=== PATIENT | female | born 1990 | race Caucasian/White ===

== ENCOUNTER 2016-12-26 21:24 | Emergency (ER) | payer OTHER ==
[~2016-12-26] VITALS: Ht 162.6 cm; Wt 102.5 kg
[2016-12-26 22:33] VITALS: Ht 162.6 cm; Wt 102.5 kg
[2016-12-27] MEDS ORDERED: BISM262O23 PO (00:22)
--- NOTE | 2016-12-27 00:22 | ERD ---
ER Documentation Chief Complaint Date/Time DATE: 12/27/16 TIME: 00:21 Chief Complaint pt c/o abd pain in mid abd HPI 26-year-old female presents to emergency department for complaints of epigastric abdominal pain started today. Patient describes the pain as sharp pain, 6/10 scale, not better or worse with anything, accompanied with nausea vomiting. Patient took Pepto-Bismol with only mild relief. Patient had history of cholecystitis, had gallbladder taken out. Patient denies any fever or chills. Patient denies any flank pain. Patient denies any diarrhea or constipation. ROS All systems reviewed and are negative except as per history of present illness. Medications Home Meds Reported Medications Bismuth Subsalicylate* (Pepto-Bismol*) Unknown Strength Oral.susp, PO Q3H, ML 12/27/16 Allergies Allergies: Coded Allergies: No Known Allergy (Unverified , 05/03/14) PMhx/Soc Medical and Surgical Hx: pt denies Medical Hx History of Surgery: Yes (cholecystectomy) Anesthesia Reaction: No Hx Neurological Disorder: No Hx Respiratory Disorders: No Hx Cardiac Disorders: No Hx Psychiatric Problems: No Hx Miscellaneous Medical Probl: No Hx Alcohol Use: No Hx Substance Use: No Hx Tobacco Use: No Smoking Status: Never smoker FmHx Family History: No coronary disease, No diabetes, No other Physical Exam Vitals Vital Signs Date Time Temp Pulse Resp B/P Pulse Ox O2 Delivery O2 Flow Rate FiO2 12/26/16 22:33 100.1 99 18 124/66 99 Physical Exam GENERAL: The patient is well developed and appropriate for usual state of health, in no apparent distress. CHEST: Clear to auscultation bilaterally. There are no rales, wheezes or rhonchi. HEART: Regular rate and rhythm. No murmurs, clicks, rubs or gallops. No S3 or S4. ABDOMEN: Soft, nontender and nondistended. Good bowel sounds. No rebound or guarding. No gross peritonitis. No gross organomegaly or masses. No Garcia sign or McBurney point tenderness. BACK: No midline or flank tenderness. EXTREMITIES: Equal pulses bilaterally. There is no peripheral clubbing, cyanosis or edema. No focal swelling or erythema. Full range of motion. Grossly neurovascularly intact. NEURO: Alert and oriented. Cranial nerves 2-12 intact. Motor strength in all 4 extremities with 5/5 strength. Sensation grossly intact. Normal speech and gait. SKIN: There is no apparent rash or petechia. The skin is warm and dry. HEMATOLOGIC AND LYMPHATIC: There is no evidence of excessive bruising or lymphedema. No gross cervical, axillary, or inguinal lymphadenopathy. Result Diagram: 12/27/162912/27/1629 Results 24 hrs Laboratory Tests Test 12/27/16 00:30 Alanine Aminotransferase (ALT/SGPT) 90IU/L Albumin 4.6g/dl Albumin/Globulin Ratio 1.24 Alkaline Phosphatase 148IU/L Anion Gap 20 Aspartate Amino Transf (AST/SGOT) 47IU/L Basophils # 0.110^3/ul Basophils % 0.3% Blood Morphology Comment Blood Urea Nitrogen 12mg/dl Calcium Level 10.0mg/dl Carbon Dioxide Level 26mmol/L Chloride Level 99mmol/L Creatinine 0.73mg/dl Direct Bilirubin 0.00mg/dl Eosinophils # 0.210^3/ul Eosinophils % 1.1% Globulin 3.70g/dl Glucose Level 104mg/dl Hematocrit 45.3% Hemoglobin 15.0g/dl Indirect Bilirubin 0.2mg/dl Lipase 85U/L Lymphocytes # 1.410^3/ul Lymphocytes % 7.8% Mean Corpuscular Hemoglobin 28.1pg Mean Corpuscular Hemoglobin Concent 33.2g/dl Mean Corpuscular Volume 84.7fl Mean Platelet Volume 10.1fl Monocytes # 1.410^3/ul Monocytes % 7.7% Neutrophils # 15.410^3/ul Neutrophils % 83.1% Nucleated Red Blood Cells # 0.010^3/ul Nucleated Red Blood Cells % 0.0/100WBC Platelet Count 34411^3/UL Potassium Level 3.7mmol/L Red Blood Count 5.3410^6/ul Red Cell Distribution Width 13.9% Sodium Level 141mmol/L Total Bilirubin 0.2mg/dl Total Protein 8.3g/dl Urine Bacteria FEW Urine Bilirubin NEGATIVE Urine Clarity CLEAR Urine Color LT. YELLOW Urine Glucose NEGATIVE% Urine Hemoglobin 1+ Urine Ketones NEGATIVE Urine Leukocyte Esterase NEGATIVE Urine Microscopic RBC 0-2/HPF Urine Microscopic WBC 0-2/HPF Urine Nitrite NEGATIVE Urine Specific [place] >=1.030 Urine Squamous Epithelial Cells FEW Urine Total Protein NEGATIVE Urine Urobilinogen 0.2 E.U./dL Urine pH 6.0 White Blood Count 18.510^3/ul Current Medications Medications (Trade) Dose Ordered Sig/Zeferino Route PRN Reason Start Time Stop Time Status Last Admin Dose Admin Acetaminophen/ Hydrocodone Bitart ([place] (10/325)) 1 tab ONCE ONCE PO 12/27/16 00:30 12/27/16 00:31 DC 12/27/16 00:36 Ondansetron HCl (Zofran Odt) 4 mg ONCE STAT ODT 12/27/16 00:29 12/27/16 00:30 DC 12/27/16 00:36 Patient was given medication for pain here in emergency department, after treatment, patient verbalized feeling much better. Patient's pain is improved.Patient was given Zofran here in the emergency department. After treatment, patient was able to tolerate po fluids here in the emergency department without any vomiting. There is no signs and symptoms of dehydration. PROCEDURE: CT Abdomen and pelvis without contrast. CLINICAL INDICATION: Abdominal pain. TECHNIQUE: CT scan of the abdomen and pelvis was performed on a multi- detector high-resolution CT scanner. Contiguous axial images were obtained from the lung bases to the ischial tuberosities without intravenous contrast. Coronal and sagittal reformatted images were also obtained. Images were reviewed on the PACS workstation. One or more of the following dose reduction techniques were used: - Automated exposure control. - Adjustment of the mA and/or kV according to patient size. - Use of iterative reconstruction technique. Exam CTD/vol = 23.21 mGy. Total exam DLP = 1366.57 mGy-cm. COMPARISON: 04/21/2015. FINDINGS: Evaluation of the lung bases demonstrates no pleural or parenchymal disease. Abdomen: The liver is normal in size. There is no focal mass or dilatation of the biliary tree. The patient is status post cholecystectomy. The spleen, pancreas and bilateral adrenal glands are within normal limits. Bilateral kidneys are normal in size with no contour deforming mass identified. There is no radiopaque renal or ureteral calculus identified. There is no hydronephrosis or hydroureter. There is no retroperitoneal adenopathy. The abdominal aorta is of normal caliber. There is no abnormal bowel wall thickening or distension. There is no bowel obstruction or free air. A normal appendix is identified. There is no diverticulosis or diverticulitis. There is no ascites. Pelvis: The bladder is unremarkable. The uterus and adnexa are within normal limits. There is no significant pelvic adenopathy or free fluid. Evaluation of the osseous structures demonstrates no suspicious lytic or blastic lesion. IMPRESSION: No acute abnormality identified within the abdomen and pelvis. Status post cholecystectomy. .Uri Ramirez MD, MD Date Time Electronically viewed and signed by .Uri Ramirez MD, MD on 12/27/2016 03:17 .T/ CC: RASHID DALEY [employer] PROCEDURE: Abdominal ultrasound, limited. CLINICAL INDICATION: Abdominal pain. TECHNIQUE: Multiple real-time images were acquired of the patient's right upper abdomen utilizing a high resolution transducer. COMPARISON: 04/21/2015. FINDINGS: The liver demonstrates normal echogenicity and size measuring 16.0 cm. There is no focal mass or intrahepatic biliary ductal dilatation. The portal vein is patent. The gallbladder is absent. The common bile duct measures 4.5 mm in maximal dimension. The pancreas is obscured by overlying bowel gas. No free fluid is identified. The right kidney is normal size and echogenicity measuring 11.1 cm. There is no focal renal mass or echogenic calculus identified. There is no obstructive uropathy. IMPRESSION: Status post cholecystectomy. Pancreas obscured by overlying bowel gas. Otherwise unremarkable right upper abdominal ultrasound. .Uri Ramirez MD, MD Date Time Electronically viewed and signed by .Uri Ramirez MD, MD on 12/27/2016 02:02 .T/ CC: RASHID DALEY [employer] Procedures/MDM Medical Decision Making: Patient's abdominal pain nonspecific at this time, possible gastritis possible viral. There is low suspicion for abdominal emergencies at this time. Patients abdominal exam is normal at this time. Patients radiology exam does not show any abdominal emergencies at this time. There is low suspicion for appendicitis, cholecystitis, abdominal aortic aneurysms or peritonitis at this time. There is low suspicion for sepsis. Patient appears well and is hemodynamically stable. Disposition: Home. Condition: Stable Prescription Zofran, [place], Mylanta, omeprazole Instructions: Patient is advised to take medications as prescribed. Patient is advised to rest, increase fluid intake and do brat diet for next 1-2 days and progress as tolerated. Patient is advised that if symptoms are worse, severe abdominal pain, uncontrolled vomiting, high fever, severe flank pain, worst signs and symptoms, to return to the emergency department immediately. Otherwise, patient can follow up with primary care doctor in 5-7 days. Departure Diagnosis: Primary Impression: Abdominal pain Abdominal location: epigastric Qualified Code: R10.13 - Epigastric pain Condition: Serious Patient Instructions: Abdominal Pain Additional Instructions: : Patient is advised to take medications as prescribed. Patient is advised to rest, increase fluid intake and do brat diet for next 1-2 days and progress as tolerated. Patient is advised that if symptoms are worse, severe abdominal pain , uncontrolled vomiting, high fever, severe flank pain, worst signs and symptoms , to return to the emergency department immediately. Otherwise, patient can follow up with primary care doctor in 5-7 days. RASHID DALEY NP Dec 27, 2016 00:22
[2016-12-27] MEDS ORDERED: ONDANSETRON (ODT) 4 MG TAB ODT STA (00:29)
[2016-12-27] MEDS ORDERED: HYDROCODONE/APAP (10/325) TAB PO ONE (00:30)
[2016-12-27 01:02] LABS: ALBUMIN 4.6 g/dl (3.3-4.9)
[2016-12-27 01:03] LABS: POTASSIUM 3.7 mmol/L (3.5-5.1)
[2016-12-27 01:05] LABS: ALBUMIN/GLOBULIN RATIO 1.24; BILIRUBIN,INDIRECT 0.2 mg/dl (0-1.1); BILIRUBIN,TOTAL 0.2 mg/dl (0.2-1.3); CREATININE 0.73 mg/dl (0.44-1.00); TOTAL PROTEIN 8.3 g/dl (6.1-8.1)
[2016-12-27 01:07] LABS: BASOPHIL # 0.1 10^3/ul (0.0-0.1); BASOPHILS % 0.3 % (0.0-2.0); EOSINOPHILS # 0.2 10^3/ul (0.0-0.5); EOSINOPHILS % 1.1 % (0.0-7.0); HEMATOCRIT 45.3 % (37.0-47.0); LYMPHOCYTES # 1.4 10^3/ul (0.8-2.9); LYMPHOCYTES % 7.8 % (15.0-51.0); MEAN CORPUSCULAR HEMOGLOBIN 28.1 pg (29.0-33.0); MEAN CORPUSCULAR HGB CONC 33.2 g/dl (32.0-37.0); MEAN CORPUSCULAR VOLUME 84.7 fl (82.0-101.0); MEAN PLATELET VOLUME 10.1 fl (7.4-10.4); MONOCYTE # 1.4 10^3/ul (0.3-0.9); MONOCYTES % 7.7 % (0.0-11.0); NEUTROPHIL # 15.4 10^3/ul (1.6-7.5); NEUTROPHILS % 83.1 % (39.0-77.0); PLATELET COUNT 193 10^3/UL (140-440); RED BLOOD COUNT 5.34 10^6/ul (4.20-5.40); RED CELL DISTRIBUTION WIDTH 13.9 % (11.5-14.5); UNCORRECTED WBC 18.5 10^3/ul (4.8-10.8); WHITE BLOOD COUNT 18.5 10^3/ul (4.8-10.8)
[2016-12-27 01:10] LABS: CONDITION 1
[2016-12-27 01:19] LABS: ADD UMIC YES; URINE BILIRUBIN (Dip) NEGATIVE (NEGATIVE); URINE BLOOD (Dip) 1+ (NEGATIVE); URINE COLOR LT. YELLOW (YELLOW); URINE GLUCOSE (Dip) NEGATIVE (NEGATIVE); URINE KETONES (Dip) NEGATIVE (NEGATIVE); URINE LEUKOCYTE ESTERASE (Dip) NEGATIVE (NEGATIVE); URINE NITRITE (Dip) NEGATIVE (NEGATIVE); URINE TOTAL PROTEIN (Dip) NEGATIVE (NEGATIVE); URINE UROBILINOGEN (Dip) 0.2 E.U./dL (0.1-1.0)
[2016-12-27 01:29] LABS: BACTERIA,URINE FEW; SQUAMOUS EPITHELIAL CELL,UR FEW; URINE RBCS 0-2 /HPF (0)
--- NOTE | 2016-12-27 02:03 | RADRPT ---
PROCEDURE: Abdominal ultrasound, limited. CLINICAL INDICATION: Abdominal pain. TECHNIQUE: Multiple real-time images were acquired of the patient's right upper abdomen utilizing a high resolution transducer. COMPARISON: 04/21/2015. FINDINGS: The liver demonstrates normal echogenicity and size measuring 16.0 cm. There is no focal mass or in trahepatic biliary ductal dilatation. The portal vein is patent. The gallbladder is absent. The c ommon bile duct measures 4.5 mm in maximal dimension. The pancreas is obscured by overlying bowel g as. No free fluid is identified. The right kidney is normal size and echogenicity measuring 11.1 cm. There is no focal renal mass or echogenic calculus identified. There is no obstructive uropathy. IMPRESSION: Status post cholecystectomy. Pancreas obscured by overlying bowel gas. Otherwise unremarkable right upper abdominal ultrasound. .Uri Ramirez MD, Date Time Electronically viewed and signed by .Uri Ramirez MD, MD on 12/27/2016 02:02 .T/
--- NOTE | 2016-12-27 03:17 | RADRPT ---
PROCEDURE: CT Abdomen and pelvis without contrast. CLINICAL INDICATION: Abdominal pain. TECHNIQUE: CT scan of the abdomen and pelvis was performed on a multi-detector high-resolution CT scanner. Contiguous axial images were obtained from the lung bases to the ischial tuberosities wit hout intravenous contrast. Coronal and sagittal reformatted images were also obtained. Images were reviewed on the PACS workstation. One or more of the following dose reduction techniques were used: - Automated exposure control. - Adjustment of the mA and/or kV according to patient size. - Use of iterative reconstruction technique. Exam CTD/vol = 23.21 mGy. Total exam DLP = 1366.57 mGy-cm. COMPARISON: 04/21/2015. FINDINGS: Evaluation of the lung bases demonstrates no pleural or parenchymal disease. Abdomen: The liver is normal in size. There is no focal mass or dilatation of the biliary tree. T he patient is status post cholecystectomy. The spleen, pancreas and bilateral adrenal glands are wi thin normal limits. Bilateral kidneys are normal in size with no contour deforming mass identified. There is no radiopaque renal or ureteral calculus identified. There is no hydronephrosis or hydro ureter. There is no retroperitoneal adenopathy. The abdominal aorta is of normal caliber. There is no abnormal bowel wall thickening or distension. There is no bowel obstruction or free air . A normal appendix is identified. There is no diverticulosis or diverticulitis. There is no asci corina. Pelvis: The bladder is unremarkable. The uterus and adnexa are within normal limits. There is no significant pelvic adenopathy or free fluid. Evaluation of the osseous structures demonstrates no suspicious lytic or blastic lesion. IMPRESSION: No acute abnormality identified within the abdomen and pelvis. Status post cholecystectomy. .Uri Ramirez MD, MD Date Time Electronically viewed and signed by .Uri Ramirez MD, MD on 12/27/2016 03:17 .T/
[2016-12-27] MEDS ORDERED: ONDA4TAB14 PO (03:26)
[2016-12-27] MEDS ORDERED: OMEP20CA16 PO (03:26)
[2016-12-27] MEDS ORDERED: HYDR-906 PO (03:26)
[2016-12-27] MEDS ORDERED: MAG-19 PO (03:26)
[2016-12-27 03:42] VITALS: BP 137/78; PULSE 93; RESP 18; TEMP 98.9
== END 2016-12-27 03:42 | disposition home or self-care (01) ==
LOC: FTE 21:24
DX: R10.13 Epigastric pain (principal); R11.2 Nausea with vomiting, unspecified
CPT/HCPCS: 36415; 74176; 76705; 80053; 81001; 83690; 85025; Z7502; Z7610; 81003